=== PATIENT | male | born 1955 | race Caucasian/White ===

== ENCOUNTER 2017-06-05 20:55 | Emergency (ER) | payer MEDICARE ==
--- NOTE | 2017-06-05 22:00 | RAD ---
CHEST ONE VIEW 06/05/17 HISTORY: Chest injury. COMPARISON: 02/22/17. FINDINGS: The cardiac silhouette is magnified and enlarged. Pulmonary vasculature is more engorged than on the previous exam. The mediastinum is midline. No lobar consolidation or pneumothorax are apparent. IMPRESSION: Cardiomegaly. Mild pulmonary vascular congestion. POS: [facility]
--- NOTE | 2017-06-05 22:02 | RAD ---
RIGHT HIP TWO VIEWS: 06/05/17 HISTORY: Right hip injury. FINDINGS: Oblique fracture extends from the base of the greater trochanter to the lesser trochanter. No signifi cant displacement or angulation. Osteoarthritic changes of the hip are apparent. There is calcificati on in the arterial structures. IMPRESSION: Intertrochanteric right hip fracture. POS: [facility]
--- NOTE | 2017-06-05 22:08 | RAD ---
RIGHT FEMUR TWO VIEWS: 06/05/17 HISTORY: Right leg injury. FINDINGS: Intertrochanteric fracture right hip is again demonstrated. There are degenerative changes of the kne e and hip. Calcification is apparent within the arterial structures. Femoral shaft is intact. IMPRESSION: 1. Right hip fracture. 2. Atherosclerosis. POS: [facility]
[2017-06-05] MEDS ORDERED: Morphine 4 MG/ML VIAL ONE (22:10)
[2017-06-05] MEDS ORDERED: Ondansetron HCl/PF 4 MG/2 ML Vial ONE (22:10)
[2017-06-05 22:25] LABS: Hemoglobin 12.1 g/dL (14.0-18.0); Mean Corpuscular HGB CONC 34.9 g/dL (32.0-36.0); Mean Corpuscular Hemoglobin 30.1 pg (27.0-31.0); Mean Corpuscular Volume 86.2 fL (80.0-94.0); Platelet Count 324 thou/uL (130-400); RBC Distribution Width 12.3 % (11.5-14.5); Red Blood Cell (RBC) Count 4.03 mill/uL (4.70-6.10); White Blood Cell (WBC) Count 10.9 thou/uL (4.8-10.8)
[2017-06-05 22:26] LABS: #Lymphocytes 0.2 thou/uL (1.20-3.40); #Monocytes 0.5 thou/uL (0.11-0.59); #Neutrophils 10.1 thou/uL (1.40-6.50); %Basophils 2.7 % (0.0-1.0); %Eosinophils 0.7 % (0.0-10.0); %Lymphocytes 2.2 % (21.0-51.0); %Monocytes 4.6 % (0.0-10.0); %Neutrophils 92.9 % (42.0-75.0); Mean Platelet Volume 7.6 fL (7.4-10.4)
[2017-06-05 22:27] LABS: Manual Diff?? NO
[2017-06-05 22:29] LABS: Albumin 2.4 g/dL (3.4-4.8); Anion Gap 14 mmol/L (10-20); BUN (Urea Nitrogen) 37 mg/dL (8.4-25.7); Bilirubin, Total 0.4 mg/dL (0.2-1.2); Calc. Creatinine Clearance 0 mL/min (70-130); Calcium 8.3 mg/dL (7.8-10.44); Carbon Dioxide 24 mmol/L (23-31); Chloride 92 mmol/L (98-107); Estimated GFR-MDRD Greater than 90; Globulin 3.8 g/dL (2.4-3.5); Glucose 206 mg/dL (80-115); Potassium 3.2 mmol/L (3.5-5.1); Protein, Total 6.2 g/dL (5.8-8.1); Sodium 127 mmol/L (136-145)
[2017-06-05 22:30] LABS: ALT (SGPT) 19 U/L (8-55); AST (SGOT) 22 U/L (5-34); Alkaline Phosphatase 550 U/L (40-150)
[2017-06-05 22:42] LABS: CKMB 1.9 ng/mL (0-6.6); Troponin I 0.109 ng/mL (< 0.028)
[2017-06-05] MEDS ORDERED: NS 0.9% w/ 20 MEQ KCL 1,000 ML ONE (22:42)
== END 2017-06-05 22:54 | disposition short-term general hospital (02) ==
LOC: MADERS 20:55
DX: S72.144A Nondisplaced intertrochanteric fracture of right femur, initial encounter for closed fracture (principal); E87.6 Hypokalemia; E87.1 Hypo-osmolality and hyponatremia; R09.02 Hypoxemia; I25.2 Old myocardial infarction; E11.40 Type 2 diabetes mellitus with diabetic neuropathy, unspecified; I11.0 Hypertensive heart disease with heart failure; I50.9 Heart failure, unspecified; F41.9 Anxiety disorder, unspecified; Z87.891 Personal history of nicotine dependence; Z79.4 Long term (current) use of insulin; W18.30XA Fall on same level, unspecified, initial encounter
CPT/HCPCS: 71010; 73502; 73552; 80053; 82553; 83880; 84484 ×2; 85025; 93005; 94760; 96374; 96375; 99291; G0390; 36415; J2270; J2405

== ENCOUNTER 2017-08-06 15:58 | Outpatient (CLI) | payer MEDICARE ==
[2017-08-06 16:56] LABS: Bilirubin Negative (Negative); Blood, Urine Trace (Negative); Glucose, Urine (Dipstick) >=1000 mg/dL (Negative); Leukocyte Negative (Negative); Nitrite Negative (Negative); Protein, Urine (Dipstick) > or equal to 300 mg/dL (Neg-Trace); Specific Gravity, Urine 1.015 (1.005-1.030); Urobilinogen 0.2 mg/dL (0.2-1.0)
[2017-08-06 17:24] LABS: Clarity Slightly Cloudy (Clear)
[2017-08-06 17:25] LABS: Bacteria/HPF 1+ HPF (None Seen); WBC/HPF 21-50 HPF (0-3)
== END 2017-08-06 15:59 | disposition home or self-care (01) ==
LOC: MADLAB 15:58
PROVIDERS: ATTEND General Practice
DX: E11.40 Type 2 diabetes mellitus with diabetic neuropathy, unspecified (principal); E11.22 Type 2 diabetes mellitus with diabetic chronic kidney disease; N18.9 Chronic kidney disease, unspecified; R78.81 Bacteremia
CPT/HCPCS: 81003; 81015; 87086

== ENCOUNTER 2017-08-09 13:59 | Outpatient (CLI) | payer MEDICARE ==
[2017-08-09 14:25] LABS: ALT (SGPT) 7 U/L (8-55); AST (SGOT) 11 U/L (5-34); Albumin 2.8 g/dL (3.4-4.8); Alkaline Phosphatase 115 U/L (40-150); Anion Gap 17 mmol/L (10-20); BUN (Urea Nitrogen) 12 mg/dL (8.4-25.7); Bilirubin, Total 0.3 mg/dL (0.2-1.2); Calc. Creatinine Clearance 0 mL/min (70-130); Calcium 8.8 mg/dL (7.8-10.44); Carbon Dioxide 21 mmol/L (23-31); Chloride 102 mmol/L (98-107); Estimated GFR-MDRD 51; Globulin 2.9 g/dL (2.4-3.5); Glucose 198 mg/dL (80-115); Protein, Total 5.7 g/dL (5.8-8.1); Sodium 137 mmol/L (136-145)
[2017-08-09 15:54] LABS: Potassium 2.7 mmol/L (3.5-5.1)
== END 2017-08-09 14:00 | disposition home or self-care (01) ==
LOC: MADLAB 13:59
PROVIDERS: ATTEND General Practice
DX: I13.0 Hypertensive heart and chronic kidney disease with heart failure and stage 1 through stage 4 chronic kidney disease, or unspecified chronic kidney disease (principal); I50.20 Unspecified systolic (congestive) heart failure; N18.9 Chronic kidney disease, unspecified
CPT/HCPCS: 36415; 80053

== ENCOUNTER 2017-08-26 13:41 | Outpatient (CLI) | payer MEDICARE ==
[2017-08-26 14:34] LABS: Anion Gap 15 mmol/L (10-20); BUN (Urea Nitrogen) 9 mg/dL (8.4-25.7); Calc. Creatinine Clearance 0 mL/min (70-130); Calcium 8.3 mg/dL (7.8-10.44); Carbon Dioxide 25 mmol/L (23-31); Chloride 97 mmol/L (98-107); Estimated GFR-MDRD 56; Glucose 399 mg/dL (80-115); Potassium 3.7 mmol/L (3.5-5.1); Sodium 133 mmol/L (136-145)
== END 2017-08-26 13:42 | disposition home or self-care (01) ==
LOC: MADLAB 13:41
PROVIDERS: ATTEND Internal Medicine Nephrology
DX: E11.22 Type 2 diabetes mellitus with diabetic chronic kidney disease (principal); N18.9 Chronic kidney disease, unspecified
CPT/HCPCS: 36415; 80048

== ENCOUNTER 2017-09-08 17:47 | Outpatient (CLI) | payer MEDICARE ==
[2017-09-08 18:08] LABS: Anion Gap 16 mmol/L (10-20); BUN (Urea Nitrogen) 17 mg/dL (8.4-25.7); Calc. Creatinine Clearance 0 mL/min (70-130); Calcium 9.2 mg/dL (7.8-10.44); Carbon Dioxide 24 mmol/L (23-31); Chloride 90 mmol/L (98-107); Estimated GFR-MDRD 42; Potassium 5.3 mmol/L (3.5-5.1); Sodium 125 mmol/L (136-145)
[2017-09-08 18:36] LABS: Glucose 730 mg/dL (80-115)
[2017-09-08 18:42] LABS: Critical Call Chemistry GLUCOSE WAS CALLED T
== END 2017-09-08 17:48 | disposition home or self-care (01) ==
LOC: MADLAB 17:47
PROVIDERS: ATTEND Internal Medicine Nephrology
DX: N18.3 Chronic kidney disease, stage 3 (moderate) (principal)
CPT/HCPCS: 80048

== ENCOUNTER 2017-09-09 11:42 | Outpatient (CLI) | payer MEDICARE ==
[2017-09-09 12:27] LABS: #Basophils 0.1 thou/uL (0.0-0.2); #Eosinphils 0.7 thou/uL (0.0-0.7); #Lymphocytes 2.2 thou/uL (1.20-3.40); #Monocytes 0.6 thou/uL (0.11-0.59); #Neutrophils 6.8 thou/uL (1.40-6.50); %Basophils 1.1 % (0.0-1.0); %Eosinophils 6.3 % (0.0-10.0); %Lymphocytes 21.2 % (21.0-51.0); %Monocytes 5.5 % (0.0-10.0); %Neutrophils 65.9 % (42.0-75.0); Hemoglobin 11.9 g/dL (14.0-18.0); Mean Corpuscular HGB CONC 32.9 g/dL (32.0-36.0); Mean Corpuscular Hemoglobin 29.6 pg (27.0-31.0); Mean Corpuscular Volume 89.8 fl (80.0-94.0); Mean Platelet Volume 7.3 fL (7.4-10.4); Platelet Count 321 thou/uL (130-400); RBC Distribution Width 14.9 % (11.5-14.5); Red Blood Cell (RBC) Count 4.04 mill/uL (4.70-6.10); White Blood Cell (WBC) Count 10.4 thou/uL (4.8-10.8)
[2017-09-09 13:10] LABS: ALT (SGPT) 10 U/L (8-55); AST (SGOT) 12 U/L (5-34); Alkaline Phosphatase 128 U/L (40-150); Anion Gap 16 mmol/L (10-20); BUN (Urea Nitrogen) 19 mg/dL (8.4-25.7); Bilirubin, Total 0.3 mg/dL (0.2-1.2); Calc. Creatinine Clearance 0 mL/min (70-130); Calcium 9.4 mg/dL (7.8-10.44); Carbon Dioxide 24 mmol/L (23-31); Cardiac Risk 4.4 (Less than 4.5); Chloride 96 mmol/L (98-107); Cholesterol 132 mg/dl (< 200 Desired); Estimated GFR-MDRD 43; Globulin 2.6 g/dL (2.4-3.5); Glucose 248 mg/dL (80-115); HDL Cholesterol 30 mg/dL (>60 Neg Risk); LDL Cholesterol, Calculated 51 mg/dL; Potassium 4.9 mmol/L (3.5-5.1); Protein, Total 5.6 g/dL (5.8-8.1); Sodium 131 mmol/L (136-145); Triglycerides 255 mg/dL (Less than 150)
[2017-09-09 17:10] LABS: Hemoglobin A1c 10.7 % (4.0-6.0)
== END 2017-09-09 11:43 | disposition home or self-care (01) ==
LOC: MADLAB 11:42
PROVIDERS: ATTEND General Practice
DX: E11.40 Type 2 diabetes mellitus with diabetic neuropathy, unspecified (principal); I25.10 Atherosclerotic heart disease of native coronary artery without angina pectoris
CPT/HCPCS: 36415; 80053; 80061; 83036; 84443; 85025

== ENCOUNTER 2017-09-17 11:48 | Outpatient (CLI) | payer MEDICARE ==
[2017-09-17 12:29] LABS: Anion Gap 13 mmol/L (10-20); BUN (Urea Nitrogen) 18 mg/dL (8.4-25.7); Calc. Creatinine Clearance 0 mL/min (70-130); Calcium 8.6 mg/dL (7.8-10.44); Carbon Dioxide 23 mmol/L (23-31); Chloride 104 mmol/L (98-107); Estimated GFR-MDRD 49; Glucose 322 mg/dL (80-115); Potassium 3.9 mmol/L (3.5-5.1); Sodium 136 mmol/L (136-145)
== END 2017-09-17 11:49 | disposition home or self-care (01) ==
LOC: MADLAB 11:48
PROVIDERS: ATTEND Internal Medicine Nephrology
DX: E11.51 Type 2 diabetes mellitus with diabetic peripheral angiopathy without gangrene (principal); E11.22 Type 2 diabetes mellitus with diabetic chronic kidney disease; N18.9 Chronic kidney disease, unspecified
CPT/HCPCS: 36415; 80048

== ENCOUNTER 2017-11-11 12:51 | Outpatient (CLI) | payer MEDICARE ==
[2017-11-11 13:24] LABS: #Basophils 0.1 thou/uL (0.0-0.2); #Eosinphils 0.3 thou/uL (0.0-0.7); #Lymphocytes 1.4 thou/uL (1.20-3.40); #Monocytes 0.8 thou/uL (0.11-0.59); #Neutrophils 7.1 thou/uL (1.40-6.50); %Basophils 0.9 % (0.0-1.0); %Eosinophils 2.8 % (0.0-10.0); %Lymphocytes 14.2 % (21.0-51.0); %Monocytes 8.3 % (0.0-10.0); %Neutrophils 73.9 % (42.0-75.0); Hemoglobin 7.6 g/dL (14.0-18.0); Mean Corpuscular HGB CONC 34.4 g/dL (32.0-36.0); Mean Corpuscular Hemoglobin 29.1 pg (27.0-31.0); Mean Corpuscular Volume 84.5 fl (80.0-94.0); Mean Platelet Volume 7.8 fL (7.4-10.4); Platelet Count 280 thou/uL (130-400); RBC Distribution Width 13.4 % (11.5-14.5); Red Blood Cell (RBC) Count 2.63 mill/uL (4.70-6.10); White Blood Cell (WBC) Count 9.6 thou/uL (4.8-10.8)
== END 2017-11-11 12:52 | disposition home or self-care (01) ==
LOC: MADLAB 12:51
PROVIDERS: ATTEND Urology
DX: N13.39 Other hydronephrosis (principal); R31.0 Gross hematuria
CPT/HCPCS: 85025

== ENCOUNTER 2017-11-12 11:16 | Outpatient (CLI) | payer MEDICARE ==
[2017-11-12 12:13] LABS: Hemoglobin 7.8 g/dL (14.0-18.0)
[2017-11-12 13:13] LABS: Anion Gap 15 mmol/L (10-20); BUN (Urea Nitrogen) 13 mg/dL (8.4-25.7); Calc. Creatinine Clearance 0 mL/min (70-130); Calcium 8.4 mg/dL (7.8-10.44); Carbon Dioxide 25 mmol/L (23-31); Chloride 93 mmol/L (98-107); Estimated GFR-MDRD 36; Glucose 517 mg/dL (80-115); Potassium 3.4 mmol/L (3.5-5.1); Sodium 130 mmol/L (136-145)
[2017-11-12 17:14] LABS: Iron 38 ug/dL (65-175); Iron Binding Capacity, Total 169 mcg/dL (261-462)
== END 2017-11-12 11:17 | disposition home or self-care (01) ==
LOC: MADLAB 11:16
PROVIDERS: ATTEND Internal Medicine Nephrology
DX: I12.9 Hypertensive chronic kidney disease with stage 1 through stage 4 chronic kidney disease, or unspecified chronic kidney disease (principal); D50.9 Iron deficiency anemia, unspecified; N18.3 Chronic kidney disease, stage 3 (moderate)
CPT/HCPCS: 36415; 80048; 83540; 83550; 85014; 85018

== ENCOUNTER 2017-12-01 08:48 | Emergency (ER) | payer MEDICARE ==
[~2017-12-01 08:48] MED LIST: Sterile Water Irrigation 250 ML BOT ONE
[2017-12-01 09:33] LABS: Bilirubin Negative (Negative); Blood, Urine Small (Negative); Clarity Cloudy (Clear); Glucose, Urine (Dipstick) >=1000 mg/dL (Negative); Leukocyte Trace (Negative); Nitrite Negative (Negative); Protein, Urine (Dipstick) > or equal to 300 mg/dL (Neg-Trace); Urobilinogen 0.2 mg/dL (0.2-1.0)
[2017-12-01 09:35] LABS: Bacteria/HPF Rare-Few HPF (None Seen); RBC/HPF 0-3 HPF (0-3); Squamous Epithelial 0-3 HPF (0-3); Yeast-All Forms 3+ HPF (None Seen)
== END 2017-12-01 09:50 | disposition home or self-care (01) ==
LOC: MADERS 08:48
DX: T83.091A Other mechanical complication of indwelling urethral catheter, initial encounter (principal); R33.8 Other retention of urine; E11.40 Type 2 diabetes mellitus with diabetic neuropathy, unspecified; I11.0 Hypertensive heart disease with heart failure; I50.9 Heart failure, unspecified; N19 Unspecified kidney failure; I25.2 Old myocardial infarction; F41.9 Anxiety disorder, unspecified; Z79.4 Long term (current) use of insulin
CPT/HCPCS: 81003; 81015; 87086; 99283

== ENCOUNTER 2018-01-11 13:23 | Outpatient (CLI) | payer MEDICARE ==
[2018-01-11 14:44] LABS: Bilirubin Negative (Negative); Blood, Urine Small (Negative); Clarity Slightly Cloudy (Clear); Glucose, Urine (Dipstick) 500 mg/dL (Negative); Leukocyte Trace (Negative); Nitrite Positive (Negative); Protein, Urine (Dipstick) 100 mg/dL (Neg-Trace); Specific Gravity, Urine 1.015 (1.005-1.030); Urobilinogen 0.2 mg/dL (0.2-1.0)
[2018-01-11 15:05] LABS: RBC/HPF 0-3 HPF (0-3); Squamous Epithelial 0-3 HPF (0-3); WBC/HPF 21-50 HPF (0-3)
[2018-01-11 15:06] LABS: Bacteria/HPF 2+ HPF (None Seen); Yeast-All Forms Rare HPF (None Seen)
== END 2018-01-11 13:24 | disposition home or self-care (01) ==
LOC: MADLABBHPM 13:23
PROVIDERS: ATTEND Family Medicine
DX: R33.9 Retention of urine, unspecified (principal)
CPT/HCPCS: 81001; 87077; 87086

== ENCOUNTER 2018-04-16 17:08 | Emergency (ER) | payer MEDICARE ==
[~2018-04-16 17:08] MED LIST changes: +Sodium Chloride Irrig Solution 250 ML BOT ONE; -Sterile Water Irrigation 250 ML BOT ONE
== END 2018-04-16 18:15 | disposition home or self-care (01) ==
LOC: MADERS 17:08
DX: T83.091A Other mechanical complication of indwelling urethral catheter, initial encounter (principal); I25.2 Old myocardial infarction; I11.0 Hypertensive heart disease with heart failure; I50.9 Heart failure, unspecified; Z79.899 Other long term (current) drug therapy; Z79.891 Long term (current) use of opiate analgesic
CPT/HCPCS: 99283

== ENCOUNTER 2018-04-22 16:00 | Outpatient (CLI) | payer MEDICARE ==
[2018-04-22 17:13] LABS: Bilirubin Negative (Negative); Blood, Urine Moderate (Negative); Glucose, Urine (Dipstick) Negative (Negative); Leukocyte Small (Negative); Nitrite Negative (Negative); Protein, Urine (Dipstick) > or equal to 300 mg/dL (Neg-Trace); Specific Gravity, Urine 1.025 (1.005-1.030); Urobilinogen 0.2 mg/dL (0.2-1.0)
[2018-04-22 17:28] LABS: Clarity Cloudy (Clear)
[2018-04-22 17:30] LABS: RBC/HPF 0-3 HPF (0-3); WBC/HPF 21-50 HPF (0-3)
[2018-04-22 17:31] LABS: Bacteria/HPF Rare-Few HPF (None Seen); Yeast-All Forms 4+ HPF (None Seen)
== END 2018-04-22 16:01 | disposition home or self-care (01) ==
LOC: MADLAB 16:00
PROVIDERS: ATTEND Urology
DX: Z43.5 Encounter for attention to cystostomy (principal); R33.9 Retention of urine, unspecified
CPT/HCPCS: 81001; 87086

== ENCOUNTER 2018-05-03 12:24 | Outpatient (CLI) | payer MEDICARE ==
[2018-05-03 12:58] LABS: ALT (SGPT) 14 U/L (8-55); AST (SGOT) 12 U/L (5-34); Alkaline Phosphatase 180 U/L (40-150); Anion Gap 12 mmol/L (10-20); BUN (Urea Nitrogen) 30 mg/dL (8.4-25.7); Bilirubin, Total 0.2 mg/dL (0.2-1.2); Calc. Creatinine Clearance 0 mL/min (70-130); Calcium 8.5 mg/dL (7.8-10.44); Carbon Dioxide 19 mmol/L (23-31); Chloride 108 mmol/L (98-107); Estimated GFR-MDRD 30; Globulin 2.8 g/dL (2.4-3.5); Glucose 275 mg/dL (80-115); Potassium 4.2 mmol/L (3.5-5.1); Protein, Total 5.8 g/dL (5.8-8.1); Sodium 135 mmol/L (136-145)
== END 2018-05-03 12:25 | disposition home or self-care (01) ==
LOC: MADLAB 12:24
PROVIDERS: ATTEND General Practice
DX: I13.0 Hypertensive heart and chronic kidney disease with heart failure and stage 1 through stage 4 chronic kidney disease, or unspecified chronic kidney disease (principal); I50.9 Heart failure, unspecified; N18.9 Chronic kidney disease, unspecified
CPT/HCPCS: 80053

== ENCOUNTER 2018-07-18 08:37 | Outpatient (CLI) | payer MEDICARE ==
--- NOTE | 2018-07-18 10:09 | ULT ---
RENAL ULTRASOUND: Comparison: None. History: Chronic kidney disease. Technique: Multiplanar grayscale and color doppler images were obtained in a renal ultrasound. FINDINGS: Kidneys are normal in echogenic without hydronephrosis or calculi and measures 11.7 and 12.4 cm in le ngth on the right and left, respectively. Patient has a suprapubic catheter which decompresses the urinary bladder. IMPRESSION: Unremarkable renal ultrasound. POS: [facility]
== END 2018-07-18 08:38 | disposition home or self-care (01) ==
LOC: MADULT 08:37
PROVIDERS: ATTEND Internal Medicine Nephrology
DX: M18.4 Other bilateral secondary osteoarthritis of first carpometacarpal joints (principal); R78.81 Bacteremia
CPT/HCPCS: 76770

== ENCOUNTER 2018-08-15 14:41 | Outpatient (CLI) | payer MEDICARE ==
[2018-08-15 15:47] LABS: Hemoglobin 12.8 g/dL (14.0-18.0)
[2018-08-15 15:48] LABS: ALT (SGPT) 24 U/L (8-55); AST (SGOT) 21 U/L (5-34); Albumin 3.6 g/dL (3.4-4.8); Alkaline Phosphatase 158 U/L (40-150); Anion Gap 19 mmol/L (10-20); BUN (Urea Nitrogen) 49 mg/dL (8.4-25.7); Bilirubin, Total 0.3 mg/dL (0.2-1.2); Calc. Creatinine Clearance 0 mL/min (70-130); Calcium 9.6 mg/dL (7.8-10.44); Carbon Dioxide 28 mmol/L (23-31); Chloride 86 mmol/L (98-107); Estimated GFR-MDRD 18; Globulin 3.2 g/dL (2.4-3.5); Glucose 454 mg/dL (80-115); Potassium 3.9 mmol/L (3.5-5.1); Protein, Total 6.8 g/dL (5.8-8.1); Sodium 129 mmol/L (136-145)
[2018-08-15 21:52] LABS: Creatinine, Urine 26.39 mg/dL (63-166)
== END 2018-08-15 14:42 | disposition home or self-care (01) ==
LOC: MADLAB 14:41
PROVIDERS: ATTEND Internal Medicine Nephrology
DX: I13.0 Hypertensive heart and chronic kidney disease with heart failure and stage 1 through stage 4 chronic kidney disease, or unspecified chronic kidney disease (principal)
CPT/HCPCS: 80053; 82570; 84156; 85014; 85018

== ENCOUNTER 2018-08-26 13:59 | Outpatient (CLI) | payer MEDICARE ==
[2018-08-26 14:52] LABS: Anion Gap 17 mmol/L (10-20); BUN (Urea Nitrogen) 31 mg/dL (8.4-25.7); Calc. Creatinine Clearance 0 mL/min (70-130); Carbon Dioxide 27 mmol/L (23-31); Chloride 99 mmol/L (98-107); Estimated GFR-MDRD 23; Glucose 169 mg/dL (80-115); Potassium 3.9 mmol/L (3.5-5.1); Sodium 139 mmol/L (136-145)
== END 2018-08-26 14:00 | disposition home or self-care (01) ==
LOC: MADLAB 13:59
PROVIDERS: ATTEND Internal Medicine Nephrology
DX: I13.0 Hypertensive heart and chronic kidney disease with heart failure and stage 1 through stage 4 chronic kidney disease, or unspecified chronic kidney disease (principal); I50.9 Heart failure, unspecified; N18.9 Chronic kidney disease, unspecified
CPT/HCPCS: 80048